=== PATIENT | male | born 1975 | race Caucasian/White ===

== ENCOUNTER → 2018-12-12 | Outpatient (CLI) | payer BC, SELFPAY ==
--- NOTE | 2018-12-12 14:22 | ECHOD_ITS ---
Reason For Study: Chest Pain Procedure This was a 2D Doppler, Color Flow transthoracic echocardiogram. Exam performed in department. Left Ventricle Normal LV size. Mild concentric left ventricular hypertrophy. Left ventricular systolic function is normal. The estimated ejection fraction is 60 %. Stage 1 diastolic dysfunction. No regional wall motion abnormalities noted. Right Ventricle Normal RV size. Normal systolic function. Atria Normal left atrium. Normal right atrium. Mitral Valve Normal mitral valve. Tricuspid Valve Normal tricuspid valve. Aortic Valve Normal aortic valve. Trisinus/trileaflet aortic valve. Pulmonic Valve The pulmonic valve is not well visualized. Great Vessels Normal aortic root. The pulmonary artery is normal size. Normal inferior vena cava. Pericardium/Pleural No pericardial effusion. MMode/2D Measurements & Calculations LVIDd: 5.0 cm IVSd: 1.3 cm Ao root diam: 3.8 cm LVIDs: 3.2 cm LVPWd: 1.3 cm LA dimension: 4.1 cm FS: 36.6 % LAV(MOD-bp): 44.2 ml LA A4 area: 17.8 cm2 RA A4 area: 14.8 cm2 LAV(MOD-bp) Indexed: 19.4 ml/m2 LAV(MOD-sp2): 34.3 ml LAV(MOD-sp4): 49.3 ml Time Measurements MV dec time: 0.18 sec Doppler Measurements & Calculations MV E max hieu: 65.0 cm/sec Lat Peak E' Hieu: 10.3 cm/sec Med Peak E' Hieu: 8.1 cm/sec MV A max hieu: 76.7 cm/sec E/E' lat: 6.3 E/E' med: 8.1 MV E/A: 0.85 MV V2 max: 76.0 cm/sec MV P1/2t max hieu: 57.2 cm/sec Ao V2 max: 99.5 cm/sec MV max P.3 mmHg MV P1/2t: 80.9 msec Ao max P.0 mmHg MV V2 mean: 37.3 cm/sec MV dec slope: 207.1 cm/sec2 MV mean P.67 mmHg MVA(P1/2t): 2.7 cm2 MV V2 VTI: 18.8 cm LV V1 max: 104.2 cm/sec PA V2 max: 107.9 cm/sec LV V1 max P.3 mmHg Interpretation Summary Normal LV size. Mild concentric left ventricular hypertrophy. Left ventricular systolic function is normal. The estimated ejection fraction is 60 %. Stage 1 diastolic dysfunction. Ordering Physician: Andrews Green Referring Physician: Andrews Green Performed By: Stew Post RCS
[2018-12-12 14:55] LABS: Absolute Lymphocyte Count 1.44 X10^3/ul (0.83-4.51); Basophil# 0.05 X10^3/uL; Eosinophil# 0.19 X10^3/uL; Eosinophils% 3.7 % (0-5); Hematocrit 50.6 % (40-54); Hemoglobin 17.1 g/dl (13.0-16.5); Lymphocyte # 1.44 X10^3/ul (4.0); Lymphocyte % 28.2 % (19-41); Mean Corp Hgb Conc 33.8 g/gl (32-36); Mean Corpuscular Hgb 29.8 pg (27.0-32.0); Mean Corpuscular Volume 88.3 fL (80-94); Monocyte# 0.39 X10^3/uL; Monocyte% 7.6 % (0-10); Neutrophil % 58.9 % (47-70); Platelet Count 173 K/mm3 (150-450); RBC Distribution Width CV 12.9 % (11.6-14.6); RBC Distribution Width SD 41.9 fl (35.1-43.9); Red Blood Count 5.73 M/mm3 (4.6-6.2); White Blood Count 5.1 K/mm3 (4.4-11.0)
[2018-12-12 15:00] LABS: POSITIVE COUNT NO; POSITIVE DIFFERENTIAL NO; POSITIVE MORPHOLOGY NO
[2018-12-12 15:28] LABS: ALB/GLOB Ratio 1.1 RATIO (0.9-2.4); AST(SGOT) 22 U/L (15-37); Alanine Aminotransfer ALT/SGPT 70 U/L (16-61); Albumin, Serum 3.9 g/dL (3.2-5.0); Alkaline Phosphatase 80 U/L (45-117); Anion Gap 9 (5-15); BUN 16 mg/dL (7-18); BUN/Creat Ratio 16.5 RATIO (10-20); Calcium,Total 8.9 mg/dL (8.5-10.1); Chloride 107 mmol/L (98-107); Cholesterol 137 mg/dL (200); Creatinine, Serum 0.97 mg/dL (0.70-1.30); EST Glomerular Filtration Rate 90 mL/min (>60); Est Glom Filt Rate - Afr Amer 108 mL/min (>60); Globulin 3.7 g/dL (2.2-4.2); Glucose 83 mg/dL (74-106); High Density Lipoprotein 38 mg/dL; Magnesium 2.2 mg/dL (1.6-2.6); Potassium 4.1 mmol/L (3.5-5.1); Protein, Total 7.6 g/dL (6.4-8.2); Sodium Level 145 mmol/L (136-145); Thyroid Stim Hormone (TSH) 1.16 uIU/mL (0.358-3.74); Triglycerides 140 mg/dL; Very Low Density Lipoprotein 28 mg/dL (5-40)
[2018-12-14 12:20] LABS: ASO Titer 96.8 IU/mL (0.0-200.0)
== END | disposition home or self-care (01) ==
LOC: CVS 14:04
PROVIDERS: Family Provider Family Medicine; PCP Family Medicine; Referring Provider Family Medicine; Visit Provider Family Medicine
DX: Z00.00 Encounter for general adult medical examination without abnormal findings (principal); R07.9 Chest pain, unspecified
CPT/HCPCS: 36415; 80053; 80061; 83735; 84443; 85025; 86060; 93306

== ENCOUNTER 2020-10-24 16:31 | Outpatient (RCR) | payer BC, SELFPAY ==
[2016-03-22 13:50] VITALS: BMI 34.3
== END 2020-12-17 23:59 ==
LOC: IMMUN 16:31
PROVIDERS: PCP Family Medicine; Referring Provider Family Medicine; Visit Provider Family Medicine
DX: Z23 Encounter for immunization (principal)
CPT/HCPCS: 0001A; 0002A; 91300

== ENCOUNTER 2021-08-18 07:27 | Inpatient (IN) | payer BC, SELFPAY ==
[2021-08-18] VITALS (10 sets, daily range): BP systolic 132–162; BP diastolic 76–88; PULSE 91–108; RESP 16–18; TEMP 36.4–37.1; O2SAT 95–98; BMI 38.0; BMI 39.2
--- NOTE | 2021-08-18 08:06 | EKG12_ITS ---
Test Reason : Blood Pressure : / mmHG Vent. Rate : 097 BPM Atrial Rate : 097 BPM P-R Int : 146 ms QRS Dur : 096 ms QT Int : 390 ms P-R-T Axes : 041 -15 043 degrees QTc Int : 495 ms Normal sinus rhythm Prolonged QT Abnormal ECG Confirmed by VERONICA VASQUEZ, SELINA ([id number]), writer editor AUSTEN PAZ ([id number]) on 08/19/2021 11:41:29 AM Referred By: BREANNA Confirmed By:SELINA MARTIN MD
--- NOTE | 2021-08-18 08:06 | CT_ITS ---
STUDY: CT ABDOMEN AND PELVIS WITH CONTRAST REASON FOR EXAM: Male, 46 years old. Abdominal pain, vomiting RADIATION DOSAGE (If Supplied By Facility): CTDIvol = ( 15.20 ) mGy, DLP = ( 1308.92 ) mGycm TECHNIQUE: Transaxial images were obtained from the dome of the diaphragm to the symphysis pubis without oral contrast. IV 100mL Isovue-300 was administered. Sagittal and coronal images were reconstructed. Individualized dose optimization techniques were used for this CT. COMPARISON: No prior examination available for comparison at this time. FINDINGS: Minimal degree of increased markings at the lung bases suggestive of mild bibasilar atelectasis. The visualized portions of the heart are within normal limits. There is decreased attenuation of the liver consistent with steatosis. Normal gallbladder and extrahepatic biliary system. Normal spleen. Normal pancreas. Normal bilateral adrenal glands. Normal right kidney. Normal left kidney. Normal visualized stomach. There is evidence of a circumferential wall thickening with a mild degree of inflammatory changes in the surrounding fat at the level of the distal ileum. There is evidence of a mild degree of fluid-filled small bowel loops. There is evidence of a right lateral abdominal wall hernia containing nondilated small bowel loops. The neck of the hernia measures 3.3 cm. Surgical anastomosis seen in the rectosigmoid colon. Gas and fecal material are seen in the colon. The appendix is visualized and appears normal. Normal abdominal aorta. Normal inferior vena cava. There is borderline retroperitoneal lymphadenopathy with enlarged nodes no greater than 10mm in the short axis diameter. Normal urinary bladder. There are prostatic calcifications. There is a 1 cm rounded lucency in the peripheral lateral aspect of the right side of the prostate. Normal abdominal wall. There are mild degenerative changes of the visualized lumbar spine. CT/Abdomen/Pelvis W IV Cont ONLY IMPRESSION: Findings suggestive of a inflammatory changes visualized in the distal ileum with a mild proximal dilatation of fluid-filled small bowel loops. Enteritis should be ruled out. Fluid and fecal material are seen in the colon. Small right lateral hernia containing nondilated small bowel loops. Diffuse fatty infiltration of the liver. Electronically Signed: Marlo Zavala MD at 10:01 EST ,
--- NOTE | 2021-08-18 08:07 | EX.ED.DYSGE1 ---
HPI History of Present Illness Chief Complaint: Nausea/Vomiting/Diarrhea Informant: patient Narrative Narrative: Patient is a 46-year-old male with history of hypertension and ruptured diverticulitis status post resection, ostomy and reversal ostomy presenting with abdominal pain, vomiting and diarrhea. Patient has just returned from [facility]. He is there for 1 week. 3 days after his arrival he developed nausea, vomiting and diarrhea. He denies any black or blood in his vomit or stool. Does have a diffuse abdominal pain that is worse on the right. It radiates to his back. He did not have any other sick contacts. He did not drink the local water. He states he had one bite of raw tuna but denies eating any other undercooked food. Denies eating any uncooked shellfish. He notes his urine has been darker. He states he had food poisoning in the past and this feels similar but more severe. Was drinking prior to getting sick but not drank since. Denies any fever. PFSH [facility] Medical History Diverticulitis Hypertension Home Medications albuterol sulfate [Ventolin Hfa (SP)] 1 puff INHALATION Q4H PRN PRN 03/22/16 [History Last Taken Unknown] amlodipine 5 mg PO DAILY 08/18/21 [History Last Taken Unknown] Allergy/AdvReac Type Severity Reaction Status Date / Time adhesive tape Allergy Rash Verified 03/22/16 13:50 Surgical History History of appendectomy History of colostomy reversal Social History Smoking Status: Never smoker ROS ROS ED Constitutional Constitutional ED: Denies chills or fever(s) Eyes Eyes: Denies blurry vision ENT ENT ED: Denies rhinorrhea or sore throat Cardiovascular Cardiovascular: Denies chest pain Respiratory/Chest Respiratory/Chest: Reports dyspnea Gastrointestinal Gastrointestinal: Reports abdominal pain, diarrhea, nausea and vomiting; Denies constipation Genitourinary Genitourinary ED: Reports other Details: dark urine ; Denies dysuria or hematuria Musculoskeletal Musculoskeletal: Denies arthralgias or myalgias Integumentary Denies rash Neurologic Neurologic: Denies headache(s) or weakness Psychiatric Psychiatric: Denies depression EXAM Physical Exam Const Vital Signs: 08/18/21 07:28 08/18/21 07:38 08/18/21 08:30 Temperature 97.6 F L 97.6 F L 97.8 F Temperature Source Temporal Temporal Temporal Pulse Rate 108 H 108 H 96 Respiratory Rate 16 16 16 Blood Pressure 132/77 H 132/77 H 138/80 H Blood Pressure Mean 95 95 99 Pulse Ox 96 96 97 Oxygen Delivery Method Room Air Room Air Room Air 08/18/21 09:30 08/18/21 10:30 Temperature 97.9 F 97.8 F Temperature Source Temporal Temporal Pulse Rate 94 98 Respiratory Rate 18 16 Blood Pressure 140/88 H 138/85 H Blood Pressure Mean 105 102 Pulse Ox 98 96 Oxygen Delivery Method Room Air Room Air Positive well nourished and well developed General Appearance ED: well developed HEENT Reports dry mucous membranes Negative for trauma Mouth ED: Yes dry mucous membranes Mouth: dry mucous membranes Eyes PERRL and EOMs intact bilaterally General Eye ED: Negative for scleral icterus Neck no lymphadenopathy and supple Chest Wall inspection of chest normal Resp normal respiratory effort and clear to auscultation bilaterally Cardio regular rhythm and no murmurs Rate: tachycardic GI Auscultation: hypoactive bowel sounds Palpation: soft and tender other (Mild, diffuse); Negative for guarding or rebound tenderness present Back/Spine no CVA tenderness Extremity normal to inspection General Extremety ED: Negative for edema or tenderness General Extremity: Negative for edema Neuro oriented x3 and no sensory deficits noted Sensorium / Orientation: alert Motor Exam: strength 5/5 throughout Psych mental status grossly normal Skin no rashes or lesions noted Skin Narrative: Patient is quite herr [facility] MDM MDM Narrative Medical decision making narrative: Patient is evaluated for 5 days of GI symptoms that started while he was on vacation in the [facility] [place]. On evaluation patient is tachycardic and does appear clinically dehydrated. He is given IV fluids as well as Zofran and a dose of morphine. He does have an extensive history of abdominal surgeries so I did obtain a CT to rule out obstruction or other acute intra-abdominal process. His work-up is remarkable for an elevated hemoglobin of 16.7 and an EMI with a creatinine of 1.74. His creatinine baseline is closer to 0.9. His potassium is mildly low at 3.1. He does have positive nitrates in his urine with 0-5 white blood cells and 0-5 epithelial cells. We will send off urine culture but not treat at this time. He is not having any urinary symptoms except for dark urine which is more consistent with dehydration. On reevaluation he does feel better. His CT shows some mild inflammatory change of the distal ileum consistent with enteritis. Stool culture and C. difficile test are pending. Patient be admitted for further treatment of his electrolyte derangement and dehydration. He is agreeable this plan of care. Lab Data Attestation: I reviewed the patient's lab results. Labs: Laboratory Results - last 24 hr 08/18/21 08/18/21 08/18/21 08:00 08:00 08:00 WBC 6.1 RBC 5.22 Hgb 16.7 H Hct 46.5 MCV 89.1 MCH 32.0 MCHC 35.9 RDW Std Deviation 43.1 RDW Coeff of Adama 13.2 Plt Count 215 MPV 10.5 Immature Gran % (Auto) 0.700 Neut % (Auto) 73.6 H Lymph % (Auto) 10.[address] [place] % (Auto) 14.5 H Eos % (Auto) 0.2 Baso % (Auto) 0.8 Absolute Neuts (auto) 4.5 Absolute Lymphs (auto) 0.62 L Nucleated RBC % 0 Polychromasia 1+ Sodium 137 Potassium 3.1 L Chloride 103 Carbon Dioxide 24.0 Anion Gap 10 BUN 32 H Creatinine 1.74 H Estim Creat Clear Calc 51.32 Est GFR (MDRD) Af Amer 55 L Est GFR (MDRD) Non-Af 45 L BUN/Creatinine Ratio 18.4 Glucose 154 H Calcium 8.9 Phosphorus Total Bilirubin 2.30 H Direct Bilirubin 0.69 H AST 31 ALT 50 Alkaline Phosphatase 59 Troponin I High Sens 13 Total Protein 8.0 Albumin 3.6 Globulin 4.4 H Lipase 134 Urine Color Doris Urine Clarity Sl. Cloudy Urine pH 5.0 Ur Specific [place] 1.030 Urine Protein 30 H Urine Glucose (UA) Normal Urine Ketones 15 H Urine Occult Blood 10 H Urine Nitrite Positive H Urine Bilirubin 3 H Urine Urobilinogen 1 H Ur Leukocyte Esterase 25 H Urine RBC 0-5 SEEN Urine WBC 0-5 SEEN Ur Squamous Epith Cells 0-5 SEEN Urine Bacteria 1+ Hyaline Casts 5-10 SEEN Urine Mucus 1+ 08/18/21 08:00 WBC RBC Hgb Hct MCV MCH MCHC RDW Std Deviation RDW Coeff of Adama Plt Count MPV Immature Gran % (Auto) Neut % (Auto) Lymph % (Auto) [place] % (Auto) Eos % (Auto) Baso % (Auto) Absolute Neuts (auto) Absolute Lymphs (auto) Nucleated RBC % Polychromasia Sodium Potassium Chloride Carbon Dioxide Anion Gap BUN Creatinine Estim Creat Clear Calc Est GFR (MDRD) Af Amer Est GFR (MDRD) Non-Af BUN/Creatinine Ratio Glucose Calcium Phosphorus 3.5 Total Bilirubin Direct Bilirubin AST ALT Alkaline Phosphatase Troponin I High Sens Total Protein Albumin Globulin Lipase Urine Color Urine Clarity Urine pH Ur Specific [place] Urine Protein Urine Glucose (UA) Urine Ketones Urine Occult Blood Urine Nitrite Urine Bilirubin Urine Urobilinogen Ur Leukocyte Esterase Urine RBC Urine WBC Ur Squamous Epith Cells Urine Bacteria Hyaline Casts Urine Mucus Radiography Diagnostic Testing: Clinical Impression(s) from Imaging Studies Abdomen/Pelvis CT 08/18/21 08:06 IMPRESSION: Findings suggestive of a inflammatory changes visualized in the distal ileum with a mild proximal dilatation of fluid-filled small bowel loops. Enteritis should be ruled out. Fluid and fecal material are seen in the colon. Small right lateral hernia containing nondilated small bowel loops. Diffuse fatty infiltration of the liver. Electronically Signed: Marlo Zavala MD at 10:01 EST , Rhythm Strip Rhythm Strip: Sinus Rhythm Rate: 97 Ectopy: None EKG Initial EKG: Attestation: I personally reviewed and interpreted this EKG as follows: Interpretation: Sinus Rhythm Comments: Normal sinus rhythm at a rate of 97 Normal QRS Normal UT interval QTC 495 Slight left axis Normal ST segments Discharge Plan Dx/Rx/DC Orders Clinical Impression: Diverticulitis large intestine, Enteritis, Hypokalemia Disposition Disposition: Acute Care [facility]
[2021-08-18] MEDS: 0.9% Normal Saline 1,000 ML 1000 ML IV (08:22)
[2021-08-18 08:29] LABS: Absolute Lymphocyte Count 0.62 X10^3/uL (0.83-4.51); Absolute Neutrophil Count 4.5 X10^3/uL (2.0-7.7); Basophil# 0.05 X10^3/uL; Basophil% 0.8 % (0-1); Color, Urine Amber (Yellow); Eosinophil# 0.01 X10^3/uL; Eosinophils% 0.2 % (0-5); Glucose, Dipstick Normal (Normal); Hematocrit 46.5 % (40-54); Hemoglobin 16.7 g/dL (13.0-16.5); Ketone-Dipstick 15 mg/dl (Negative); Leukocyte Esterase-Dipstick 25 /ul (Negative); Lymphocyte # 0.62 X10^3/ul (0.83-4.51); Lymphocyte % 10.2 % (19-41); Mean Corp Hgb Conc 35.9 g/dL (32-36); Mean Corpuscular Volume 89.1 fL (80-94); Mean Platelet Vol. 10.5 fl (6.2-12.0); Monocyte# 0.88 X10^3/uL; Monocyte% 14.5 % (0-10); NRBC Flagged by Analyzer 0 % (0-5); Neutrophil # 4.48 X10^3/uL (2.7-7.7); Neutrophil % 73.6 % (47-70); Nitrite-Dipstick Positive (Negative); Occult Blood-Urine 10 /ul (Negative); POSITIVE MORPHOLOGY YES; Platelet Count 215 K/mm3 (150-450); Protein-Dipstick 30 mg/dl (Negative); RBC Distribution Width CV 13.2 % (11.6-14.6); RBC Distribution Width SD 43.1 fl (35.1-43.9); Red Blood Count 5.22 M/mm3 (4.6-6.2); Urine Clarity Sl. Cloudy (Clear); Urine Urobilinogen 1 mg/dl (Normal); White Blood Count 6.1 K/mm3 (4.4-11.0)
[2021-08-18 08:30] LABS: Urine Bilirubin Dipstick 3 mg/dL (Negative)
[2021-08-18 08:33] LABS: Differential Indicated SCAN CRITERIA MET
[2021-08-18] MEDS: Famotidine 200 MG/20 ML MDV 20 MG in 0.9% Normal Saline (Pres. free 8 ML 300 MG IV (08:40)
[2021-08-18] MEDS: Morphine 4 MG/ML Syringe IV (08:40)
[2021-08-18] MEDS: Ondansetron 4 MG/2 ML Vial IV (08:40)
[2021-08-18 08:49] LABS: Bacteria 1+ /hpf (None Seen); Hyaline Cast 5-10 SEEN /lpf (0-5); Mucous, Urine 1+ /hpf (<or=2+); Red Blood Cells-Urine 0-5 SEEN /hpf (0-5); Squamous Epithelial Cells - UA 0-5 SEEN /hpf (0-5); White Blood Cells 0-5 SEEN /hpf (0-5)
[2021-08-18 09:01] LABS: Polychromasia 1+
[2021-08-18 09:19] LABS: AST(SGOT) 31 U/L (15-37); Alanine Aminotransfer ALT/SGPT 50 U/L (16-61); Albumin, Serum 3.6 g/dL (3.2-5.0); Alkaline Phosphatase 59 U/L (45-117); Anion Gap 10 (5-15); BUN 32 mg/dL (7-18); BUN/Creat Ratio 18.4 RATIO (10-20); Bilirubin, Direct 0.69 mg/dL (0.00-0.30); Calcium,Total 8.9 mg/dL (8.5-10.1); Chloride 103 mmol/L (98-107); Creatinine, Serum 1.74 mg/dL (0.70-1.30); EST Glomerular Filtration Rate 45 mL/min (>60); Est Glom Filt Rate - Afr Amer 55 mL/min (>60); Estimated Creatinine Clearance 51.32 ml/min; Globulin 4.4 g/dL (2.2-4.2); Glucose 154 mg/dL (74-106); Lipase 134 U/L (73-393); Potassium 3.1 mmol/L (3.5-5.1); Sodium Level 137 mmol/L (136-145); Troponin-I HS 13 pg/mL (3.0-78.0)
--- NOTE | 2021-08-18 11:02 | HP.PCM.HOS_ITS ---
HPI - General General Date of Admission: 08/18/21 Date of Service: 08/18/21 Chief Complaint: Nausea, Vomiting and abdominal pain for 5 days HPI Narrative HARPREET LINK, is a 46 M with history of complicated sigmoid diverticulitis surgery status post resection, colostomy, ileostomy and then reversal in 2014 came to ER for abdominal pain, nausea, vomiting and diarrhea. The patient along with his family went to [facility] in [facility] and he stayed for 1 week. His abdominal symptoms started with nausea, diarrhea multiple times started 5 days ago. It is mainly watery in consistency, voluminous, with no mucus or blood. He has sometimes tenesmus sensation. A day after he started having vomiting, mainly gastric consistency along with the reflux symptoms. Patient also has abdominal pain, diffuse in location about 7-8/10, no aggravating or precipitating factor but got better with morphine in the ED. Patient also has accompanying abdominal distention and generalized swelling. Had mild chills but no documented fever. Patient is not able to eat or keep the food in his stomach. In ED, shows mild tachycardia, rate 100.9. No fever. Blood pressure in normal range. CT abdomen shows inflammatory changes in distal ileum with mild proximal dilatation of fluid-filled small bowel loops. Fluid and fecal material seen in colon. Small right lateral hernia containing nondilated small bowel loops. Stool exam studies have been ordered in the ER. Patient is further admitted. [facility] Medical History Diverticulitis Hypertension Home Medications albuterol sulfate [Ventolin Hfa (SP)] 1 puff INHALATION Q4H PRN PRN 03/22/16 [History Last Taken Unknown] amlodipine 5 mg PO DAILY 08/18/21 [History Last Taken Unknown] Allergy/AdvReac Type Severity Reaction Status Date / Time adhesive tape Allergy Rash Verified 03/22/16 13:50 Surgical History History of appendectomy History of colostomy reversal Social History Smoking Status: Never smoker ROS ROS Narrative Constitutional: Reports fatigue and malaise, not able to eat HEENT: Reports systems reviewed and no addt'l complaints, except as documented Respiratory/Chest: Denies chest pain, shortness of breath at rest or with exertion Gastrointestinal: As mentioned in HPI Genitourinary: Denies burning urination or new urinary tract symptoms Musculoskeletal: Reports joint pain and limited range of motion Neurologic: Denies seizure-like activity skin: No ulcer. No rash Endocrinology: Reports systems reviewed and no addt'l complaints, except as documented Hematologic/Lymphatic: Reports systems reviewed and no addt'l complaints, except as documented Rest 14 ROS are negative except as mentioned in HPI Vital Signs Vital Signs Vital Signs: 08/18/21 07:28 08/18/21 07:38 Temperature 97.6 F L 97.6 F L Temperature Source Temporal Temporal Pulse Rate 108 H 108 H Respiratory Rate 16 16 Blood Pressure 132/77 H 132/77 H Blood Pressure Mean 95 95 Pulse Ox 96 96 Oxygen Delivery Method Room Air Room Air Weight Weight: 250 lb Body Mass Index (BMI) 38.0 Physical Exam Narrative General: Alert, Oriented x3, Cooperative, morbid obese BMI 38 kg/m? HEENT: Atraumatic, PERRLA, EOMI, Normocephalic Oral: No Gingival or Mucosal Lesions/ Ulcerations Neck: Supple, No JVD, Negative Carotid Bruits Lungs: Air entry diminished in bilateral lung bases. No crepitation/rhonchi Cardiovascular: Sinus tachycardia, Normal S1, Normal S2, No murmurs Abdomen: Soft, distended, bowel sound hyperactive. Midline lower abdominal surgical scar present. Mild tenderness to palpation but no rebound tenderness. : No renal angle tenderness. No suprapubic tenderness. Extremities: No edema, Capillary Refill Less than 3 Seconds Skin: No rashes, No breakdown Musculoskeletal: No Tenderness to Palpation of Joints or Extremities Neurological: Cranial nerves II-XII grossly intact, DTR 2+/4 and Symmetrical, Neuro grossly intact Psych/Mental Status: Normal Affect, Appropriate. Results Lab / Micro Data Result Diagrams: 08/18/21 08:00 08/18/21 08:00 Labs: Laboratory Results - last 24 hr 08/18/21 08:00: WBC 6.1, RBC 5.22, Hgb 16.7 H, Hct 46.5, MCV 89.1, MCH 32.0, MCHC 35.9, RDW Std Deviation 43.1, RDW Coeff of Adama 13.2, Plt Count 215, MPV 10.5, Immature Gran % (Auto) 0.700, Neut % (Auto) 73.6 H, Lymph % (Auto) 10.2 L, [place] % (Auto) 14.5 H, Eos % (Auto) 0.2, Baso % (Auto) 0.8, Absolute Neuts (auto) 4.5, Absolute Lymphs (auto) 0.62 L, Nucleated RBC % 0, Polychromasia 1+ 08/18/21 08:00: Sodium 137, Potassium 3.1 L, Chloride 103, Carbon Dioxide 24.0, Anion Gap 10, BUN 32 H, Creatinine 1.74 H, Estim Creat Clear Calc 51.32, Est GFR (MDRD) Af Amer 55 L, Est GFR (MDRD) Non-Af 45 L, BUN/Creatinine Ratio 18.4, Glucose 154 H, Calcium 8.9, Total Bilirubin 2.30 H, Direct Bilirubin 0.69 H, AST 31, ALT 50, Alkaline Phosphatase 59, Troponin I High Sens 13, Total Protein 8.0, Albumin 3.6, Globulin 4.4 H, Lipase 134 08/18/21 08:00: Urine Color Doris, Urine Clarity Sl. Cloudy, Urine pH 5.0, Ur Specific [place] 1.030, Urine Protein 30 H, Urine Glucose (UA) Normal, Urine Ketones 15 H, Urine Occult Blood 10 H, Urine Nitrite Positive H, Urine Bilirubin 3 H, Urine Urobilinogen 1 H, Ur Leukocyte Esterase 25 H, Urine RBC 0-5 SEEN, Urine WBC 0-5 SEEN, Ur Squamous Epith Cells 0-5 SEEN, Urine Bacteria 1+, Hyaline Casts 5-10 SEEN, Urine Mucus 1+ Micro: Microbiology 08/18/21 09:50 Interface Orders SARS-CoV-2 Antigen (Rapid) - Final 08/18/21 08:00 Stool Stool Lactoferrin - Final Radiology Impression Abdomen/Pelvis CT 08/18/21 08:06 IMPRESSION: Findings suggestive of a inflammatory changes visualized in the distal ileum with a mild proximal dilatation of fluid-filled small bowel loops. Enteritis should be ruled out. Fluid and fecal material are seen in the colon. Small right lateral hernia containing nondilated small bowel loops. Diffuse fatty infiltration of the liver. Electronically Signed: Marlo Zavala MD at 10:01 EST , Assessment & Plan Assessment/Plan (1) Enteritis: PLAN: 1. Acute enteritis most probably infective or inflammatory: [facility] abdomen individually reviewed. Shows distal ileum with mild circumferential wall thickening and inflammatory changes surrounding fat. Evidence of right lateral abdominal wall hernia containing nondilated small bowel loops. [facility] Ringer lactate, clear liquids small amount to start with, intake and output and clinical monitoring. Lipase is normal. No leukocytosis. Follow stool studies. Patient has been vaccinated with COVID moderna with booster. Patient tested rapid antigen SARS-CoV-2 negative 2. History of ruptured sigmoid diverticulitis status post bowel resection, colostomy with a stricture, resultant ileostomy and then ileostomy reversal. Closely monitor for bowel obstruction. If needed, will consult surgery. His previous surgery was done by Dr. Jhoan Sutton. Total bilirubin 2.3, direct 0.69. Transaminases normal. 3 acute kidney injury most probably prerenal due to hypovolemia/volume contraction: Creatinine is 1.7. Previous creatinine 0.97 in December 2018. BUN 32. Mild hypokalemia K3.1. Potassium is getting replaced check serum magnesium and phosphorus. Monitor kidney function electrolytes. 4. Hyperglycemia: Glucose is 154. Check A1c tomorrow a.m. VTE prophylaxis: High risk in view of obesity: Heparin 5 times subcutaneous 3 times daily Total time of the visit including total time spent in counseling or coordination of care, (more than 50% of the total time, spent in obtaining medical information from nurses and other ancillary care providers,explaining to the patient about labs, imaging, diagnosis and management), discussion with patient's , review of labs and imaging is 45 minutes. CODE STATUS full Charges/Coding Visit Charges OBSV E&M: 08535 Initial observation care L3
[2021-08-18] MEDS: Lactated Ringers 1,000 ML 100 ML IV ×2 (12:20→21:11)
[2021-08-18] MEDS: 0.9% Saline Lock 10 ML Syringe IV (12:20)
[2021-08-18 12:39] LABS: Phosphorus 3.5 mg/dL (2.5-4.9)
[2021-08-18] MEDS: proCHLORPERazine 10 MG/2 ML Vial 5 MG IV (12:45)
[2021-08-18] MEDS: Heparin Injection (Vial) 5,000 UNIT/ML VIAL 5000 UNIT SC ×2 (12:46→21:11)
[2021-08-18] MEDS: Potassium Chloride 10mEq/100mL 10 MEQ/100 ML IV.SOLN. 100 MEQ IV BOLUS ×2 (14:12→15:18)
[2021-08-18] MEDS: Acetaminophen 325 MG Tablet 650 MG PO (20:07)
[2021-08-18] MEDS: Morphine 2 MG/ML Syringe IV (21:15)
[2021-08-19 02:10] VITALS: BP 129/78; PULSE 86; RESP 16; TEMP 37; O2SAT 96
[2021-08-19 04:59] LABS: Absolute Lymphocyte Count 1.09 X10^3/uL (0.83-4.51); Absolute Neutrophil Count 3.4 X10^3/uL (2.0-7.7); Basophil# 0.05 X10^3/uL; Basophil% 0.8 % (0-1); Eosinophil# 0.14 X10^3/uL; Eosinophils% 2.3 % (0-5); Hematocrit 43.3 % (40-54); Lymphocyte # 1.09 X10^3/ul (0.83-4.51); Lymphocyte % 18.1 % (19-41); Mean Corp Hgb Conc 34.6 g/dL (32-36); Mean Corpuscular Hgb 31.5 pg (27.0-32.0); Mean Platelet Vol. 9.8 fl (6.2-12.0); Monocyte# 1.32 X10^3/uL; Monocyte% 21.9 % (0-10); NRBC Flagged by Analyzer 0 % (0-5); Neutrophil # 3.36 X10^3/uL (2.7-7.7); Neutrophil % 55.9 % (47-70); POSITIVE MORPHOLOGY YES; Platelet Count 184 K/mm3 (150-450); RBC Distribution Width CV 13.5 % (11.6-14.6); RBC Distribution Width SD 45.3 fl (35.1-43.9); Red Blood Count 4.76 M/mm3 (4.6-6.2)
[2021-08-19 05:04] LABS: Differential Indicated SCAN CRITERIA MET
[2021-08-19] MEDS: Heparin Injection (Vial) 5,000 UNIT/ML VIAL 5000 UNIT SC ×3 (05:14→21:01)
[2021-08-19] MEDS: proCHLORPERazine 10 MG/2 ML Vial 5 MG IV ×2 (05:14→21:25)
[2021-08-19 05:25] LABS: ALB/GLOB Ratio 0.8 RATIO (0.9-2.4); AST(SGOT) 23 U/L (15-37); Alanine Aminotransfer ALT/SGPT 55 U/L (16-61); Alkaline Phosphatase 49 U/L (45-117); Anion Gap 5 (5-15); BUN 24 mg/dL (7-18); BUN/Creat Ratio 20.3 RATIO (10-20); Calcium,Total 8.5 mg/dL (8.5-10.1); Chloride 109 mmol/L (98-107); Creatinine, Serum 1.18 mg/dL (0.70-1.30); EST Glomerular Filtration Rate 71 mL/min (>60); Est Glom Filt Rate - Afr Amer 85 mL/min (>60); Estimated Creatinine Clearance 75.68 ml/min; Globulin 3.8 g/dL (2.2-4.2); Glucose 121 mg/dL (74-106); Potassium 3.5 mmol/L (3.5-5.1); Protein, Total 6.8 g/dL (6.4-8.2); Sodium Level 138 mmol/L (136-145)
[2021-08-19] MEDS: Acetaminophen 325 MG Tablet 650 MG PO (07:53)
[2021-08-19 08:26] VITALS: BP 134/75; PULSE 88; RESP 18; TEMP 37.2; O2SAT 96
[2021-08-19 08:34] LABS: MG Sendout 2.2 mg/dL (1.6-2.3)
[2021-08-19 08:43] LABS: Hemoglobin A1c 5.2 % (3.8-5.6)
[2021-08-19] MEDS: Lactated Ringers 1,000 ML 100 ML IV ×2 (09:32→18:44)
[2021-08-19] MEDS: Pantoprazole Sodium 40 MG Tablet PO (09:32)
[2021-08-19] MEDS: amLODIPine 5 MG Tablet PO (09:32)
--- NOTE | 2021-08-19 11:30 | CASEMGMT ---
TATYANA MARIE Face to Face with patient for initial transition planning/care coordination assessment. RN CYNTHIA introduced self and role at [facility]. Patient sitting in chair, alert and oriented, sitting at bedside. Patient willing to participate in assessment and is able to answer all questions appropriately. Care providers, pharmacy, and demographics verified. Patient wishes to discharge home, denies need for home health at this time. Patient states he has no further needs or concerns at this time. CM to follow for discharge planning needs that may arise. PCP: Norma Specialists: none Preferred Pharmacy: [facility] retail Insurance: [employer] Prescription Benefit: yes Living Will/HPOA: none LNOK: , son, daughter Living Arrangements: Patient lives with in a single story home with no steps to enter the home. Patient is independent at home. Transportation: self, , daughter DME/HHC: Patient has cpap at home. Patient denies previous HHC. Disposition Plan: Patient to discharge home with family support and follow-up plans in place. Estefanía MORALES, RN, CM
[2021-08-19] MEDS: Calcium Carbonate 500 MG Tablet PO ×2 (12:37→16:51)
[2021-08-19 14:31] VITALS: BP 143/76; PULSE 87; RESP 18; TEMP 36.6; O2SAT 98
--- NOTE | 2021-08-19 15:43 | PN.HOSP_ITS ---
Subjective Subjective Seen and examined. Patient is still having loose bowel movement, diarrhea 3-4 times yesterday. Mild abdominal distention. Patient passed flatus but it was not adequate still feel gaseous distention. On clear liquid diet. Labs, stool studies discussed with the patient and his present in the room. Objective Data Objective Data Vital Signs: Vital Signs Temp Pulse Resp BP Pulse Ox 98 F 87 18 143/76 H 98 08/19/21 14:31 08/19/21 14:31 08/19/21 14:31 08/19/21 14:31 08/19/21 14:31 Oxygen Delivery Method Room Air Weight: 259 lb 4.218 oz Body Mass Index (BMI) 39.2 Intake & Output: Intake and Output for Last 24 Hours 08/17/21 08/18/21 08/19/21 23:59 23:59 23:59 Intake Total 2341 / 2341 1000 / 1000 Output Total 425 / 425 500 / 500 Balance 1916 / 1916 500 / 500 Medical Nutrition Assessment Dietitian: Malnutrition Criteria Met Start: 08/18/21 14:32 Freq: Status: Active Protocol: Document 08/18/21 14:32 SLA (Rec: 08/18/21 14:32 SLA [id number]) Nutrition Malnutrition Evidence of Malnutrition Exists Yes Malnutrition (severe): Acute Illness/Injury Evidenced By Suboptimal Energy Intake ( Severe),Weight Loss (Severe) Clinical Problem Acute Disease or Injury Related Malnutrition Etiology related to acute enteritis and n/v/ abd pain 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 Lab / Micro Data Result Diagrams: 08/19/21 04:27 08/19/21 04:27 Labs: Laboratory Results - last 24 hr 08/18/21 08:00: Magnesium 2.2 08/19/21 04:27: WBC 6.0, RBC 4.76, Hgb 15.0, Hct 43.3, MCV 91.0, MCH 31.5, MCHC 34.6, RDW Std Deviation 45.3 H, RDW Coeff of Adama 13.5, Plt Count 184, MPV 9.8, Immature Gran % (Auto) 1.000 H, Neut % (Auto) 55.9, Lymph % (Auto) 18.1 L, [place] % (Auto) 21.9 H, Eos % (Auto) 2.3, Baso % (Auto) 0.8, Absolute Neuts (auto) 3.4, Absolute Lymphs (auto) 1.09, Nucleated RBC % 0 08/19/21 04:27: Sodium 138, Potassium 3.5, Chloride 109 H, Carbon Dioxide 24.0, Anion Gap 5, BUN 24 H, Creatinine 1.18, Estim Creat Clear Calc 75.68, Est GFR (MDRD) Af Amer 85, Est GFR (MDRD) Non-Af 71, BUN/Creatinine Ratio 20.3 H, Glucose 121 H, Calcium 8.5, Total Bilirubin 1.60 H, AST 23, ALT 55, Alkaline Phosphatase 49, Total Protein 6.8, Albumin 3.0 L, Globulin 3.8, Albumin/Globulin Ratio 0.8 L 08/19/21 04:27: Hemoglobin A1c 5.2 Micro: Microbiology 08/18/21 08:00 Urine, Clean Catch Urine Culture - Preliminary Culture exhibits no growth. 08/18/21 08:00 Stool Stool Lactoferrin - Final 08/18/21 08:00 Stool Enteric Bacteriology - Final 08/18/21 08:00 Stool C. difficile DNA Amplification - Final 08/18/21 09:50 Interface Orders SARS-CoV-2 Antigen (Rapid) - Final Rhythm Strip Rhythm Strip: Sinus Rhythm Rate: 97 Ectopy: None Physical Exam Narrative General: Alert, Oriented x3, Cooperative, morbid obese BMI 38 kg/m? HEENT: Atraumatic, PERRLA, EOMI, Normocephalic Oral: No Gingival or Mucosal Lesions/ Ulcerations Neck: Supple, No JVD, Negative Carotid Bruits Lungs: Air entry diminished in bilateral lung bases. No crepitation/rhonchi Cardiovascular: Sinus tachycardia, Normal S1, Normal S2, No murmurs Abdomen: Soft, mildly distended, bowel sound normal. Midline lower abdominal surgical scar present. No rebound tenderness. : No renal angle tenderness. No suprapubic tenderness. Extremities: No edema, Capillary Refill Less than 3 Seconds Skin: No rashes, No breakdown Musculoskeletal: No Tenderness to Palpation of Joints or Extremities Neurological: Cranial nerves II-XII grossly intact, DTR 2+/4 and Symmetrical, Neuro grossly intact Psych/Mental Status: Normal Affect, Appropriate. Assessment & Plan Assessment/Plan (1) Enteritis: PLAN: 1. Acute enteritis most probably infective or inflammatory: [facility] abdomen individually reviewed. Shows distal ileum with mild circumferential wall thickening and inflammatory changes surrounding fat. Evidence of right lateral abdominal wall hernia containing nondilated small bowel loops. [facility] IV fluid Ringer lactate, clear liquids small amount to start with, intake and output and clinical monitoring. Lipase is normal. No leukocytosis. Patient has been vaccinated with COVID moderna with booster. Patient tested rapid antigen SARS-CoV-2 negative 08/19: Stool for C. difficile, enteric bacteriology panel are negative. Stool for ova and parasite pending. Stool lactoferrin test positive. Preliminary urine culture negative shows no growth. 2. History of ruptured sigmoid diverticulitis status post bowel resection, colostomy with a stricture, resultant ileostomy and then ileostomy reversal. Closely monitor for bowel obstruction. If needed, will consult surgery. His previous surgery was done by Dr. Jhoan Sutton. Total bilirubin 2.3, direct 0.69. Transaminases normal. 3 acute kidney injury most probably prerenal due to hypovolemia/volume contraction: Creatinine is 1.7. Previous creatinine 0.97 in December 2018. BUN 32. Mild hypokalemia K3.1. Potassium is getting replaced check serum magnesium and phosphorus. 08/19: K3.5. Mild hyperchloremia. BUN 24. IV fluid Ringer lactate ordered for total of 2 L 4. Hyperglycemia: Glucose is 154. 28: A1c 5.2%. Normal. Prediabetes and diabetes mellitus ruled out VTE prophylaxis: High risk in view of obesity: Heparin 5000 subcutaneous 3 times daily Total time of the visit including total time spent in counseling or coordination of care, (more than 50% of the total time, spent in obtaining medical i nformation from nurses and other ancillary care providers,explaining to the patient about labs, imaging, diagnosis and management), discussion with patient's , review of labs and imaging is 45 minutes. CODE STATUS full Charges/Coding Visit Charges Inpatient E&M: 20970 Subs Hosp L2
[2021-08-19 20:30] VITALS: BP 137/72; PULSE 89; RESP 16; TEMP 36.7; O2SAT 97
[2021-08-20 02:30] VITALS: BP 137/68; PULSE 84; RESP 16; TEMP 36.8; O2SAT 98
[2021-08-20] MEDS: Heparin Injection (Vial) 5,000 UNIT/ML VIAL 5000 UNIT SC (05:21)
[2021-08-20 08:00] VITALS: BP 137/90; PULSE 86; RESP 16; TEMP 36.9; O2SAT 96
[2021-08-20 08:34] LABS: Absolute Lymphocyte Count 1.77 X10^3/uL (0.83-4.51); Absolute Neutrophil Count 5.2 X10^3/uL (2.0-7.7); Basophil# 0.07 X10^3/uL; Basophil% 0.9 % (0-1); Eosinophil# 0.21 X10^3/uL; Eosinophils% 2.6 % (0-5); Hematocrit 48.2 % (40-54); Hemoglobin 16.6 g/dL (13.0-16.5); Lymphocyte # 1.77 X10^3/ul (0.83-4.51); Lymphocyte % 21.5 % (19-41); Mean Corp Hgb Conc 34.4 g/dL (32-36); Mean Corpuscular Hgb 31.7 pg (27.0-32.0); Mean Corpuscular Volume 92.2 fL (80-94); Mean Platelet Vol. 9.8 fl (6.2-12.0); Monocyte# 0.87 X10^3/uL; Monocyte% 10.6 % (0-10); NRBC Flagged by Analyzer 0 % (0-5); Neutrophil # 5.21 X10^3/uL (2.7-7.7); Neutrophil % 63.2 % (47-70); Platelet Count 297 K/mm3 (150-450); RBC Distribution Width CV 13.5 % (11.6-14.6); Red Blood Count 5.23 M/mm3 (4.6-6.2); White Blood Count 8.2 K/mm3 (4.4-11.0)
[2021-08-20 09:00] LABS: ALB/GLOB Ratio 0.8 RATIO (0.9-2.4); AST(SGOT) 29 U/L (15-37); Alanine Aminotransfer ALT/SGPT 63 U/L (16-61); Albumin, Serum 3.3 g/dL (3.2-5.0); Alkaline Phosphatase 59 U/L (45-117); Anion Gap 6 (5-15); BUN 18 mg/dL (7-18); BUN/Creat Ratio 16.4 RATIO (10-20); Calcium,Total 9.2 mg/dL (8.5-10.1); Chloride 111 mmol/L (98-107); EST Glomerular Filtration Rate 77 mL/min (>60); Est Glom Filt Rate - Afr Amer 93 mL/min (>60); Estimated Creatinine Clearance 81.18 ml/min; Globulin 4.3 g/dL (2.2-4.2); Glucose 101 mg/dL (74-106); Potassium 3.7 mmol/L (3.5-5.1); Protein, Total 7.6 g/dL (6.4-8.2); Sodium Level 138 mmol/L (136-145)
[2021-08-20] MEDS: Calcium Carbonate 500 MG Tablet PO (09:10)
[2021-08-20] MEDS: amLODIPine 5 MG Tablet PO (09:10)
[2021-08-20] MEDS: Pantoprazole Sodium 40 MG Tablet PO (09:10)
[2021-08-20] MEDS: Loperamide 2 MG Capsule PO (09:10)
--- NOTE | 2021-08-20 09:22 | PCM.DC ---
Discharge Instructions Diet Discharge Diet: Low fat / Low cholesterol and 2000 mg Sodium Diet Activity Discharge Activity: Return to Normal Activity Additional Activity Instructions:: Advise CPAP at night Dressing / Incision Call your doctor if you observe: Fever of 101 or Higher, Coldness, Increased Pain, Numbness or Tingling, Change in Color, Inability to urinate, Inability to have a bowel movement, Shortness of breath, Dizziness, Fainting spells, Swelling in the ankles, Chest pain, Prolonged hiccupping, Increased palpitations (irregular heartbeat), Calf discomfort and Uncontrolled pain Follow Up Care Test Results: Test results from this visit will be discussed in further detail at your follow-up appointment, if applicable. Discharge Plan Admission Admit Date/Time: 08/18/21 10:58 Primary Reason for Your Visit: Acute diarrhea, acute ileitis Attending Provider: Db Jacobs Primary Care Provider: Andrews Green Discharge Orders/Prescriptions Prescriptions: New simethicone [Mi-Acid Gas Relief(simethicon)] 80 mg Tablet,Chewable 80 mg PO TIDPC PRN (Reason: Abdominal Distention) Qty: 0 RF: 0 loperamide [Anti-Diarrheal (loperamide)] 2 mg tablet 2 mg PO Q4H PRN (Reason: loose stool) Qty: 30 RF: 0 calcium carbonate 200 mg calcium (500 mg) Tablet,Chewable 500 mg PO BIDCM PRN (Reason: Acid Reflux) Qty: 0 RF: 0 Continued albuterol sulfate [Ventolin HFA] 1 INHALER inhaler 1 puff inhalation Q4H PRN PRN (Reason: Asthma) RF: 0 amlodipine 5 mg tablet 5 mg PO DAILY RF: 0 Referrals / Follow Up: Andrews Green MD [Primary Care Provider] - Within 2 Weeks (For diarrhea) Syd Holt DO [STAFF PHYSICIAN] - Within 1 Month (If diarrhea persist for about a month) Disposition Disposition (needs filled in before D/C Order can be placed): Home, Self Care
--- NOTE | 2021-08-20 09:31 | DS.PCM_ITS ---
Providers Date of Admission: 08/18/21 Date of Discharge: 08/20/21 Primary Care Physician: Dr. Andrews Green MD Reason For Visit: ACUTE ENTERITIS Diagnosis Discharge Diagnosis (1) Enteritis: Status: Acute Code(s): K52.9 - Noninfective gastroenteritis and colitis, unspecified Medications at Discharge Home Medications albuterol sulfate [Ventolin HFA] 1 puff INHALATION Q4H PRN PRN 03/22/16 amlodipine 5 mg PO DAILY 08/18/21 calcium carbonate 500 mg PO BIDCM PRN #0 tab 08/20/21 loperamide [Anti-Diarrheal (loperamide)] 2 mg PO Q4H PRN #30 tab 08/20/21 simethicone [Mi-Acid Gas Relief(simethicon)] 80 mg PO TIDPC PRN #0 tab 08/20/21 Hospital Course Summary of Care Provided Hospital Course: This 46-year-old male with history of complicated sigmoid diverticulitis surgery status post resection, colostomy, ileostomy and then reversal in 2014 was admitted through ER for abdominal pain, nausea, vomiting and diarrhea. 1. Acute enteritis most probably infective or inflammatory: The patient is be ing admitted on [facility] floor. CT abdomen individually reviewed. Shows distal ileum with mild circumferential wall thickening and inflammatory changes surrounding fat. Evidence of right lateral abdominal wall hernia containing nondilated small bowel loops. Patient is being admitted on [facility] floor. IV fluid Ringer lactate, clear liquids small amount to start with, intake and output and clinical monitoring. Lipase is normal. No leukocytosis. Patient has been vaccinated with COVID moderna with booster. Patient tested rapid antigen SARS-CoV-2 negative 08/20: Stool for C. difficile, enteric bacteriology panel are negative. Stool for ova and parasite pending. Stool lactoferrin test positive. Preliminary urine culture negative shows no growth. Course of diarrhea discussed with the patient and his Nora. If diarrhea persist for 4 weeks or more will need follow-up with GI membership correspondent Dr. Holt to rule out other chronic causes including secretory diarrhea. PPI not recommended for diarrhea as it can give C. difficile. Advised [id number] loperamide for symptomatic relief along with simethicone. No leukocytosis. 2. History of ruptured sigmoid diverticulitis status post bowel resection, colostomy with a stricture, resultant ileostomy and then ileostomy reversal. Closely monitor for bowel obstruction. If needed, will consult surgery. His previous surgery was done by Dr. Jhoan Sutton. Total bilirubin 2.3, direct 0.69. Transaminases normal. 3 acute kidney injury most probably prerenal due to hypovolemia/volume contraction: Creatinine is 1.7. Previous creatinine 0.97 in December 2018. BUN 32. Mild hypokalemia K3.1. Potassium is getting replaced check serum magnesium and phosphorus. 08/19: K3.5. Mild hyperchloremia. BUN 24. IV fluid Ringer lactate ordered for total of 2 L. Repeat potassium 3.7. Hypokalemia corrected. 4. Hyperglycemia: Glucose is 154. 28: A1c 5.2%. Normal. Prediabetes and diabetes mellitus ruled out VTE prophylaxis: High risk in view of obesity: Heparin 5000 subcutaneous 3 times daily Advised to take [id number] loperamide 2 mg every 4 hourly as needed along with simethicone. If diarrhea persists for about a month, advised to follow with membership correspondent Dr. Holt for chronic diarrhea CODE STATUS full Discharge medication reconciliation done. Discharge follow-up instructions completed. Discharge process discussed with the patient and all questions were answered to patient's satisfaction. Total time spent, exact 35 minutes on discharge meds reconciliation, examination, coordination of care with nurses and ancillary staff, review of imaging and blood test and discussion with the patient on follow-up instructions Physical Exam Narrative Diarrhea has gotten better. Patient had chronic diarrhea yesterday but today it is 2 times. Started on loperamide General: Alert, Oriented x3, Cooperative, morbid obese BMI 38 kg/m? HEENT: Atraumatic, PERRLA, EOMI, Normocephalic Oral: No Gingival or Mucosal Lesions/ Ulcerations Neck: Supple, No JVD, Negative Carotid Bruits Lungs: Air entry diminished in bilateral lung bases. No crepitation/rhonchi Cardiovascular: Sinus tachycardia, Normal S1, Normal S2, No murmurs Abdomen: Soft, bowel sound normal. Distention resolved midline lower abdominal surgical scar present. No rebound tenderness. : No renal angle tenderness. No suprapubic tenderness. Extremities: No edema, Capillary Refill Less than 3 Seconds Skin: No rashes, No breakdown Musculoskeletal: No Tenderness to Palpation of Joints or Extremities Neurological: Cranial nerves II-XII grossly intact, DTR 2+/4 and Symmetrical, Neuro grossly intact Psych/Mental Status: Normal Affect, Appropriate. 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 Weight / BMI Weight Weight: 257 lb 11.526 oz Body Mass Index (BMI) 39.2 ABG / Lab / Microbiology Data Result Diagrams: 08/20/21 08:22 08/20/21 08:22 Laboratory: Laboratory Results - last 24 hr 08/20/21 08:22: WBC 8.2, RBC 5.23, Hgb 16.6 H, Hct 48.2, MCV 92.2, MCH 31.7, MCHC 34.4, RDW Std Deviation 46.0 H, RDW Coeff of [place]ama 13.5, Plt Count 297, MPV 9.8, Immature Gran % (Auto) 1.200 H, Neut % (Auto) 63.2, Lymph % (Auto) 21.5, [place] % (Auto) 10.6 H, Eos % (Auto) 2.6, Baso % (Auto) 0.9, Absolute Neuts (auto) 5.2, Absolute Lymphs (auto) 1.77, Nucleated RBC % 0 08/20/21 08:22: Sodium 138, Potassium 3.7, Chloride 111 H, Carbon Dioxide 21.0, Anion Gap 6, BUN 18, Creatinine 1.10, Estim Creat Clear Calc 81.18, Est GFR (MDRD) Af Amer 93, Est GFR (MDRD) Non-Af 77, BUN/Creatinine Ratio 16.4, Glucose 101, Calcium 9.2, Total Bilirubin 1.40 H, AST 29, ALT 63 H, Alkaline Phosphatase 59, Total Protein 7.6, Albumin 3.3, Globulin 4.3 H, Albumin/Globulin Ratio 0.8 L Microbiology: Microbiology 08/18/21 08:00 Urine, Clean Catch Urine Culture - Final Culture exhibits no growth. 08/18/21 08:00 Stool Stool Lactoferrin - Final 08/18/21 08:00 Stool Enteric Bacteriology - Final 08/18/21 08:00 Stool C. difficile DNA Amplification - Final 08/18/21 09:50 Interface Orders SARS-CoV-2 Antigen (Rapid) - Final D/C Instructions Discharge Diet: Low fat / Low cholesterol and 2000 mg Sodium Diet Additional Activity Instructions: Advise CPAP at night Call your doctor if you observe: Fever of 101 or Higher, Coldness, Increased Pain, Numbness or Tingling, Change in Color, Inability to urinate, Inability to have a bowel movement, Shortness of breath, Dizziness, Fainting spells, Swelling in the ankles, Chest pain, Prolonged hiccupping, Increased palpitations (irregular heartbeat), Calf discomfort and Uncontrolled pain Meaningful Use Info Meaningful Use Diagnoses (Choose all that apply): None applicable Discharge Plan Admission Admit Date/Time: 08/18/21 10:58 Primary Reason for Your Visit: Acute diarrhea, acute ileitis Attending Provider: Db Jacobs Primary Care Provider: Andrews Green Instructions Forms: Work / School Excuse Discharge Orders/Prescriptions Prescriptions: New simethicone [Mi-Acid Gas Relief(simethicon)] 80 mg Tablet,Chewable 80 mg PO TIDPC PRN (Reason: Abdominal Distention) Qty: 0 RF: 0 loperamide [Anti-Diarrheal (loperamide)] 2 mg tablet 2 mg PO Q4H PRN (Reason: loose stool) Qty: 30 RF: 0 calcium carbonate 200 mg calcium (500 mg) Tablet,Chewable 500 mg PO BIDCM PRN (Reason: Acid Reflux) Qty: 0 RF: 0 Continued albuterol sulfate [Ventolin HFA] 1 INHALER inhaler 1 puff inhalation Q4H PRN PRN (Reason: Asthma) RF: 0 amlodipine 5 mg tablet 5 mg PO DAILY RF: 0 Referrals / Follow Up: Andresw Green MD [Primary Care Provider] - Within 2 Weeks (For diarrhea) Syd Holt DO [STAFF PHYSICIAN] - Within 1 Month (If diarrhea persist for about a month) Disposition Disposition (needs filled in before D/C Order can be placed): Home, Self Care Charges/Coding Visit Charges Inpatient E&M: 87859 Disch Hosp
== END 2021-08-20 11:26 | disposition home or self-care (01) | DRG 391 ==
LOC: ED 08:09 → MS3 15:34
PROVIDERS: Admitting Provider Internal Medicine; Emergency Provider Emergency Medicine; PCP Family Medicine; Visit Provider Internal Medicine
DX: A09 Infectious gastroenteritis and colitis, unspecified (principal); E43 Unspecified severe protein-calorie malnutrition; N17.9 Acute kidney failure, unspecified; E87.8 Other disorders of electrolyte and fluid balance, not elsewhere classified; E86.1 Hypovolemia; E66.01 Morbid (severe) obesity due to excess calories; I10 Essential (primary) hypertension; E87.6 Hypokalemia; Z87.19 Personal history of other diseases of the digestive system; Z90.49 Acquired absence of other specified parts of digestive tract; Z68.38 Body mass index [BMI] 38.0-38.9, adult; R73.9 Hyperglycemia, unspecified
CPT/HCPCS: 36415; 74177; 80048; 80053; 80076; 81001; 83036; 83630; 83690; 83735; 84100; 84484; 85025; 87086; 87177; 87209; 87426; 87493; 87506; 93005; 97802; 99251; 99284; J7050; J7120; Q9967; A4216; G0463; J2405; J3490